=== PATIENT | female | born 2000 | race African-American/Black ===

== ENCOUNTER 2022-06-23 19:43 | Emergency (ER) | payer MEDICAID | END 2022-06-23 21:15 | disposition left against medical advice (07) | LOC: ER 19:43 | DX: T78.40XA Allergy, unspecified, initial encounter (principal); Z53.21 Procedure and treatment not carried out due to patient leaving prior to being seen by health care provider; X58.XXXA Exposure to other specified factors, initial encounter ==

== ENCOUNTER 2022-09-16 11:29 | Emergency (ER) | payer MEDICAID ==
[~2022-09-16] VITALS: Ht 172.7 cm; Wt 68.1 kg
[2022-09-16] MEDS ORDERED: TRIA0.02 TOP (12:49)
[2022-09-16] MEDS ORDERED: CEPH500C PO (12:49)
[2022-09-16 12:56] VITALS: BP 119/71; PULSE 84; RESP 18; O2SAT 100
== END 2022-09-16 12:58 | disposition home or self-care (01) ==
LOC: EDBD 11:29 → ER 11:35
DX: H00.014 Hordeolum externum left upper eyelid (principal)

== ENCOUNTER 2024-04-03 11:49 | Observation (INO) | payer MEDICAID ==
[~2024-04-03] VITALS: Ht 167.6 cm; Wt 103.8 kg
[~2024-04-03 11:49] MED LIST: CEPH500C PO; TRIA0.02 TOP
[2024-04-03 12:39] VITALS: BP 125/85; PULSE 117; RESP 18; TEMP 98.6; O2SAT 99
--- NOTE | 2024-04-03 13:00 | ED.PDOC ---
Musculoskeletal HPI Comments A 23 YEAR OLD FEMALE PRESENTS TO THE ED WITH CHIEF COMPLAINT OF BILATERAL FOOT ITCHINESS AND SWELLING. PATIENT REPORTS THAT SHE HAS BEEN EXPERIENCING BILATERAL FOOT AND HAND ITCHINESS ALONG WITH ASSOCIATED BILATERAL FOOT SWELLING AND UPPER ABDOMINAL PAIN SINCE YESTERDAY. FOOT SWELLING IMPROVED TODAY ONLY ITCHING FOOT A ND HAND. PATIENT STATES SHE IS CURRENTLY 33 WEEKS WITH TWINS AND HER LAST US WAS PERFORMED 3-4 DAYS AGO. PATIENT NOTES HER OBGYN OFFICE IS IN [place]. PATIENT DENIES ANY N/V/D, WEAKNESS, NUMBNESS, LEG PAIN, CRAMPING, OR VAGINAL BLEEDING. NO OTHER SYMPTOMS REPORTED AT THIS TIME OF CARE. Chief Complaint: Lower Extremity Time Seen by MD: 12:55 Primary Care Provider: MEY Elizalde Notes: Nurses Notes, Medications, Allergies Allergies: Coded Allergies: NO KNOWN ALLERGIES (Unverified , 12/07/21) Home Meds Active Scripts Triamcinolone Acetonide (Triamcinolone Acetonide) 0.025 % Cre, 1 APPLIC TOP BID, #30 GRAMS Prov:SAE VERDUGO 09/16/22 Cephalexin Monohydrate (Cephalexin) 500 Mg Cap, 1 CAP PO QID, #28 CAP Prov:SAE VERDUGO 09/16/22 Information Source: Patient Mode of Arrival: Ambulatory Location: Bilateral Extremity Location: Foot, Hand Timing: Days Prehospital treatment: None Severity: Mild Able to Move Extremity: Yes Bear Weight: Fully Pain: None Mechanism: Spontaneous Circumstances: Spontaneous Onset of Symptoms: Spontaneous DVT Risk Factors: NONE Associated signs and symptoms: None Past Medical History PAST MEDICAL HISTORY: Anemia Surgical History: Denies all surgeries SOIL SCIENCE PROFESSOR History: No Pertinent SOIL SCIENCE PROFESSOR History Family History Family History: Reviewed,noncontributory to illness Social History Smoker: Non-Smoker Alcohol: Denies ETOH Use Drugs: Denies Drug Use Lives In: Home Constitutional: denies: chills, diaphoresis, fatigue, fever, malaise, sweats, weakness, others EENTM: denies: blurred vision, double vision, ear bleeding, ear discharge, ear drainage, ear pain, ear ringing, eye pain, eye redness, hearing loss, mouth pain, mouth swelling, nasal discharge, nose bleeding, nose congestion, nose pain, photophobia, tearing, throat pain, throat swelling, voice changes, others Respiratory: denies: cough, hemoptysis, orthopnea, SOB at rest, shortness of breath, SOB with excertion, stridor, wheezing, others Cardiovascular: denies: chest pain, dizzy spells, diaphoresis, Dyspnea on exertion, edema, irregular heart beat, left arm pain, lightheadedness, palpitations, PND, syncope, others Gastrointestinal: denies: abdomen distended, abdominal pain, blood streaked bowels, constipated, diarrhea, dysphagia, difficulty swallowing, hematemesis, melena, nausea, poor appetite, poor fluid intake, rectal bleeding, rectal pain, vomiting, others Genitourinary: reports: ; denies: abnormal vagina bleeding, burning, dyspareunia, dysuria, flank pain, frequency, hematuria, incontinence, pain, vagina discharge, urgency, others Neurological: denies: dizziness, fainting, headache, left sided numbness, left sided weakness, numbness, paresthesia, pre-existing deficit, right sided numbness, right sided weakness, seizure, speech problems, tingling, tremors, weakness, others Musculoskeletal: reports: joint swelling, others (BILATERAL FOOT SWELLING, BILATERAL HAND AND FOOT ITCHINESS); denies: back pain, gout, joint pain, muscle pain, muscle stiffness, neck pain Integumetry: denies: bruises, change in color, change in hair/nails, dryness, laceration, lesions, lumps, rash, wounds, others Allergic/Immunocompromised: reports: Itching; denies: Difficulty Healing, Frequent Infections, Hives, others Hematologic/Lymphatic: denies: anemia, blood clots, easy bleeding, easy bruising, swollen glands, others Endocrine: denies: excessive hunger, excessive sweating, excessive thirst, excessive urination, flushing, intolerance to cold, intolerance to heat, unexplained weight gain, unexplained weight loss, others Psychiatric: denies: anxiety, bipolar disorder, depression, hopeless, panic disorder, schizophrenia, sleepless, suicidal, others All Other Systems: Reviewed and Negative Physical Exam General Appearance: No Apparent Distress, Obese HEENT: Normal ENT Inspection, PERRL/EOMI Neck: Full Range of Motion, Non-Tender, Normal, Normal Inspection Respiratory: Chest Non-Tender, Lungs Clear, No Accessory Muscle Use, No Respiratory Distress, Normal Breath Sounds Cardiovascular: No Edema, No JVD, No Murmur, No Gallop, Normal Peripheral Pulses, Regular Rate/Rhythm Breast Exam: Deferred Gastrointestinal: No Organomegaly, No Pulsatile Mass, Normal Bowel Sounds, Soft, Tenderness (MILD TENDERNESS GENERAL ABD, NO GUARDING AND REBOUND TENDERNESS. ) Genitalia: Deferred Pelvic: Deferred Rectal: Deferred Extremities: No calf tenderness, Normal capillary refill, Normal inspection, Normal range of motion, Non-tender, No pedal edema, Other (NO REDNESS AND SWELLING ON FEET AND HANDS, NORMAL UPPER AND LOWER EXTREMITY, NO DVT SIGNS. ) Musculoskeletal : Apperance: Normal Neurologic: Alert, career professional II-XII nml as Tested, No Motor Deficits, Normal Affect, Normal Mood, No Sensory Deficits Cerebellar Function: Normal Reflexes: Normal Skin: Dry, Normal Color, Warm Peripheral Pulses: 2+ carotid (R), 2+ carotid (L), 2+ dorsalis pedis (R), 2+ dorsalis pedis (L), 2+ Radial (R), 2+ Radial (L) Lymphatic: No Adenopathy Was a procedure done? Was a procedure done?: No Differential Diagnosis EXT Differential Diagnosis: Deep Vein Thrombosis, Other (ITCHINGNESS, FLUID OVERLOAD, ) X-Ray, Labs, Meds, VS Vital Signs Date Time Temp Pulse Resp B/P (MAP) Pulse Ox O2 Delivery O2 Flow Rate FiO2 04/03/24 12:39 98.6 117 18 125/85 (98) 99 98.6 04/03/24 12:39 117 18 99 Room Air 04/03/24 12:14 98.6 117 18 125/85 (98) 99 Lab Test 04/03/24 12:39 04/03/24 12:00 04/03/24 11:59 Range/Units White Blood Count 7.4 4.4-10.8 10^3/uL Red Blood Count 3.80 L 4.0-5.20 10^6/uL Hemoglobin 9.1 L 12.2-16.2 g/dL Hematocrit 28.6 L 36.0-46.0 % Mean Corpuscular Volume 75.3 L 80.0-100.0 fL Mean Corpuscular Hemoglobin 24.1 L 28.0-32.0 pg Mean Corpuscular Hemoglobin Concent 32.0 32.0-36.0 g/dL Red Cell Distribution Width 17.7 H 11.8-14.3 % Platelet Count 287 140-450 10^3/uL Mean Platelet Volume 8.1 6.9-10.8 fL Neutrophils (%) (Auto) 80.1 H 37.0-80.0 % Lymphocytes (%) (Auto) 13.5 10.0-50.0 % Monocytes (%) (Auto) 5.4 0.0-12.0 % Eosinophils (%) (Auto) 0.7 0.0-7.0 % Basophils (%) (Auto) 0.3 0.0-2.0 % Neutrophils # (Auto) 5.9 1.6-8.6 10 ^3/uL Lymphocytes # (Auto) 1.0 0.4-5.4 10 ^3/uL Monocytes # (Auto) 0.4 0-1.3 10 ^3/uL Eosinophils # (Auto) 0.1 0-0.8 10 ^3/uL Basophils # (Auto) 0 0-0.2 10 ^3/uL Nucleated Red Blood Cells 0.4 % Sodium Level 138 136-145 mmol/L Potassium Level 3.5 3.5-5.1 mmol/L Chloride Level 107 98-107 mmol/L Carbon Dioxide Level 22 20-31 mmol/L Anion Gap 9 5-15 Blood Urea Nitrogen < 5 L 9-23 mg/dL Creatinine 0.45 L 0.550-1.02 mg/dL Glomerular Filtration Rate Calc 140 >90 mL/min BUN/Creatinine Ratio 11.1 10.0-20.0 Serum Glucose 123 H 74-106 mg/dL Calcium Level 9.3 8.7-10.4 mg/dL POC Glucose 133 H 70-106 mg/dl Urine Color Yellow Yellow Urine Clarity Turbid H Clear Urine pH 6.5 5.0-9.0 Urine Specific [place] 1.016 1.001-1.035 Urine Protein Trace H Negative Urine Ketones Trace Negative Urine Blood Negative Negative /uL Urine Nitrite Negative Negative Urine Bilirubin Negative Negative Urine Urobilinogen 4 H Negative mg/dL Urine Leukocyte Esterase Negative Negative /uL Urine RBC 1 0 - 4 /hpf Urine Microscopic WBC 3 0-5 /HPF Urine Squamous Epithelial Cells Mod <5 /hpf Urine Bacteria None seen None Seen /hpf Urine Mucus Few None Seen Urine Glucose Normal Normal mg/dL X-Ray, Labs, Meds, VS Comment EXTERNAL MEDICAL RECORDS REVIEWED: [NONE] INDEPENDENT HISTORIANS: [NONE] SOCIAL DETERMINANTS OF HEALTH: [NONE] LABS ORDERED: BMP, CBC, BNP, UA REVIEWED AND INTERPRETED RESULTS: NONE IMAGING ORDERED: NONE TREATMENTS ORDERED: NONE PROCEDURES PERFORMED: NONE CRITICAL CARE TIME: NONE PATIENT AT THIS TIME DOES NOT WISH TO WAIT FOR RESULTS OF BLOOD WORK AND WISHES TO HEAD OVER TO LABOR AND DELIVERY FOR MONITORING HER ABDOMINAL PAIN HAS INCREASED AT THIS TIME. I HAVE DISCUSSED THE PATIENT WITH THE ATTENDING PHYSICIAN DR. KIM AND HE AGREES WITH THE PATIENT'S PLAN OF CARE AND DISPOSITION. BASED ON HISTORY OF PRESENT ILLNESS, AND PHYSICAL EXAM, PATIENT WILL BE DISCHARGED HOME. DISCUSSED PLAN FOR DISCHARGE HOME WITH RX. MEDICATION WARNINGS GIVEN. SHARED DECISION MAKING: DISCUSSED WITH PATIENT THAT THEIR WORKUP WAS NORMAL. PATIENT INSTRUCTED TO FOLLOW UP WITH OBGYN PROVIDER IN 1-2 DAYS FOR RE- EVALUATION OF SYMPTOMS. PATIENT VERBALIZES UNDERSTANDING TO RETURN TO ED FOR NEW OR WORSENING SYMPTOMS OR IF FOLLOW UP WITH PCP CANNOT BE OBTAINED. PATIENT FEELS COMFORTABLE GOING HOME AT THIS TIME. ALL QUESTIONS ADDRESSED AT TIME OF DISCHARGE. Time of 1ST Reevaluation: 13:30 Reevaluation 1ST: Unchanged Patient Education/Counseling: Diagnosis, Treatment Family Education/Counseling: Diagnosis, Treatment, No Family Present Comments PT WAS SENT TO [facility] BY A COMMUNITY PROGRAM ASSISTANT. Departure 1 Departure Time of Disposition: 13:40 Impression: Primary Impression: Pruritus Additional Impressions: Abdominal cramping with 33 completed weeks gestation History of anemia Disposition: 30 STILL A PATIENT Condition: Stable Additional Instructions: FOLLOW-UP WITH PCP IN 1 TO 2 DAYS. TAKE MEDICATIONS PRESCRIBED. RETURN TO ED FOR ANY NEW OR WORSENING SYMPTOMS. Discharged With: Self, Relative Critical Care Note Critical Care Time?: No Stability Stability form required: No Heart Score Heart Score: Heart Score Response (Comments) Value History N/A 0 EKG N/A 0 Age N/A 0 Risk Factors N/A 0 Troponin N/A 0 Total 0 I personally scribed for SAE VERDUGO ([email or web address]) on 04/03/24 at 13:00. Electronically submitted by Karson Patterson ([email or web address]). I personally scribed for SAE VERDUGO ([email or web address]) on 04/03/24 at 13:28. Electronically submitted by Karson Patterson ([email or web address]). SAE VERDUGO Apr 03, 2024 13:00
[2024-04-03 13:10] LABS: Chloride 107 mmol/L (98-107); Potassium 3.5 mmol/L (3.5-5.1); Sodium 138 mmol/L (136-145)
[2024-04-03 13:11] LABS: Anion Gap 9 (5-15); Carbon Dioxide 22 mmol/L (20-31)
[2024-04-03 13:12] LABS: Calcium 9.3 mg/dL (8.7-10.4)
[2024-04-03 13:17] LABS: BUN/Creatinine Ratio 11.1 (10.0-20.0); Blood Urea Nitrogen < 5 mg/dL (9-23); Glucose 123 mg/dL (74-106)
[2024-04-03 13:23] LABS: Urine Bacteria None Seen /hpf (None Seen)
[2024-04-03 13:34] LABS: Basophils # (auto) 0 10 ^3/uL (0-0.2); Eosinophils # (auto) 0.1 10 ^3/uL (0-0.8); Eosinophils % (auto) 0.7 % (0.0-7.0); Monocytes # (auto) 0.4 10 ^3/uL (0-1.3)
[2024-04-03 13:36] LABS: Urine Blood Negative /uL (Negative); Urine Clarity Turbid (Clear); Urine Color Yellow (Yellow); Urine Mucus FEW (None Seen); Urine Protein, UAD TRACE (Negative); Urine Specific Gravity 1.016 (1.001-1.035); Urine Squamous Epithelial Cell MOD /hpf (<5); Urine Urobilinogen 4 mg/dL (Negative); Urine WBC 3 /HPF (0-5); Urine pH 6.5 (5.0-9.0)
[2024-04-03 13:36] LABS: Basophils % (auto) 0.3 % (0.0-2.0); Hematocrit 28.6 % (36.0-46.0); Hemoglobin 9.1 g/dL (12.2-16.2); Lymphocytes % (auto) 13.5 % (10.0-50.0); Mean Corpuscular Hemoglobin 24.1 pg (28.0-32.0); Mean Corpuscular Volume 75.3 fL (80.0-100.0); Monocytes % (auto) 5.4 % (0.0-12.0); Neutrophils # (auto) 5.9 10 ^3/uL (1.6-8.6); Neutrophils % (auto) 80.1 % (37.0-80.0); Nucleated Red Blood Cells % 0.4 %; Platelet Count (auto) 287 10^3/uL (140-450); Red Cell Distribution Width 17.7 % (11.8-14.3); White Blood Cell 7.4 10^3/uL (4.4-10.8)
--- NOTE | 2024-04-04 09:11 | DVHDS2 ---
Physician Discharge Progress N Final Diagnosis: cramping,itching 33wks Operations or Procedures: Operations or Procedures nst 33wks,sono Condition on Discharge: Good Disposition: Home Discharge Instructions: Diet: Regular Activity: Light activity Medications: na Follow Up Care: Specialist: 2d Discharge Statement: "Patient was advised to return to the ER or call 911 if any headaches, dizziness, shortness of breath, chest pain, abdominal pain, bleeding, fevers, or worsening of medical condition. Patient was counseled about treatment plan, medications, possible side effects, patientverbalized understanding. All questions were answered to the best of my ability. This discharge took greater then 30 minutes in planning, reviewing documentation, counseling the patient, and discussing with other team members." Visit Coding OBGYN Date of Service: Apr 03, 2024 Billing Provider: DONALDO MUIR DO HEADING REPAIRER Common Visit Codes: 83205-QGNJQLZ INP/OBS CARE (HIGH) HEADING REPAIRER Procedure Codes: 81626-35- NON-STRESS TEST DONALDO MUIR DO Apr 04, 2024 09:11
== END 2024-04-03 15:08 | disposition home or self-care (01) ==
LOC: ER 11:51 → LDRP 13:30
PROVIDERS: ADMIT Obstetrics & Gynecology; ATTEND Obstetrics & Gynecology
DX: O62.9 Abnormality of forces of labor, unspecified (principal); O99.113 Other diseases of the blood and blood-forming organs and certain disorders involving the immune mechanism complicating pregnancy, third trimester; D84.9 Immunodeficiency, unspecified; L29.9 Pruritus, unspecified; Z3A.33 33 weeks gestation of pregnancy; Z79.899 Other long term (current) drug therapy
CPT/HCPCS: 36415; 59025; 80048; 81001; 81002; 82962; 85025; 94760; 99284; G0378

== ENCOUNTER 2025-01-29 23:21 | Emergency (ER) | payer MEDICAID ==
[~2025-01-29] VITALS: Ht 180.3 cm; Wt 127.0 kg
[2025-01-29 23:23] VITALS: BP 148/76; PULSE 102; RESP 18; TEMP 98; O2SAT 98
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
== END 2025-01-29 23:37 | disposition left against medical advice (07) ==
LOC: ER 23:21 → EDBD 23:21 → ER 23:37
DX: S00.83XA Contusion of other part of head, initial encounter (principal); R51.9 Headache, unspecified; Y08.89XA Assault by other specified means, initial encounter; Y93.89 Activity, other specified; Y92.89 Other specified places as the place of occurrence of the external cause; Y99.8 Other external cause status